=== PATIENT | female | born 1990 | race African-American/Black ===

== ENCOUNTER 2024-08-05 18:53 | Emergency (ER) | payer SELFPAY ==
[~2024-08-05] VITALS: Ht 167.6 cm; Wt 117.9 kg
[2024-08-05 19:07] VITALS: TEMP 97.9
[2024-08-05 19:37] LABS: BASOPHILS % 0.3 % (0.0-1.0); EOSINOPHILS # (AUTO) 0.3 (0.0-0.4); EOSINOPHILS % 5.7 % (0.0-6.0); HEMATOCRIT 34.8 % (34.2-44.1); HEMOGLOBIN 11.8 g/dL (12.0-16.0); LYMPHOCYTES # (AUTO) 1.5 (1.0-3.2); MEAN CORPUSCULAR HEMOGLOBIN 32.4 pg (28-32); MEAN CORPUSCULAR HGB CONC 33.9 g/dL (31-35); MEAN CORPUSCULAR VOLUME 95.6 fL (81-99); MONOCYTES # (AUTO) 0.6 (0.2-0.8); MONOCYTES % 9.4 % (4.4-11.3); NEUTROPHILS # (AUTO) 3.5 (2.1-6.9); NEUTROPHILS % 59.1 % (38.7-80.0); PLATELET COUNT 293 x10e3/uL (140-360); RED BLOOD COUNT 3.64 x10e6/uL (3.6-5.1); RED CELL DISTRIBUTION WIDTH 11.9 % (11.7-14.4); WHITE BLOOD COUNT 5.95 x10e3/uL (4.8-10.8)
[2024-08-05 19:49] VITALS: PULSE 88; RESP 18; O2SAT 96
[2024-08-05 19:51] LABS: ALBUMIN 3.5 g/dL (3.5-5.0); ANION GAP 13.5 mmol/L (8-16); BILIRUBIN,TOTAL 0.5 mg/dL (0.2-1.2); CALCIUM 8.5 mg/dL (8.4-10.2); CREATININE, SERUM 0.79 mg/dL (0.57-1.11); POTASSIUM 3.5 mmol/L (3.5-5.1)
[2024-08-05] MEDS: METHYLPREDNISOLONE SOD SUCC 125 MG/2ML VIAL IV ONE (19:53)
[2024-08-05] MEDS: ALBUTEROL SULF 0.083% NEB SOLN 3 ML NEB NEB STA (19:56)
[2024-08-05] MEDS: IPRATROPIUM BROMIDE 0.02% 2.5 ML NEB NEB ONE (19:57)
[2024-08-05 20:05] LABS: TOTAL PROTEIN 7.4 g/dL (6.5-8.1)
[2024-08-05 20:10] LABS: ALBUMIN/GLOBULIN RATIO 0.9 (0.8-2.0)
[2024-08-05 20:11] VITALS: PULSE 92; RESP 18
[2024-08-05 21:33] LABS: CORONAVIRUS COVID-19 AG NEGATIVE (NEGATIVE); INFLUENZA A AG NEGATIVE (NEGATIVE); INFLUENZA B AG NEGATIVE (NEGATIVE)
[2024-08-05] MEDS ORDERED: ALBUTEROL1.25 MG/3 NEB (21:39)
[2024-08-05] MEDS ORDERED: MEDROL4 M2 PEG (21:39)
[2024-08-05 21:45] VITALS: PULSE 88; RESP 20; O2SAT 93
[2024-08-06] MEDS ORDERED: MEDROL4 M2 PO (06:38)
[2024-08-06] MEDS ORDERED: ALBUTEROL1.25 MG/3 NEB (06:38)
== END 2024-08-05 22:05 | disposition home or self-care (01) ==
LOC: ER 19:28
DX: R06.02 Shortness of breath (principal); R05.9 Cough, unspecified; J45.901 Unspecified asthma with (acute) exacerbation; Z11.52 Encounter for screening for COVID-19
CPT/HCPCS: 36415; 71045; 80053; 85025; 87428; 94799; 99284; J2919

== ENCOUNTER 2024-09-12 20:49 | Emergency (ER) | payer SELFPAY ==
[~2024-09-12] VITALS: Ht 167.6 cm; Wt 119.3 kg
[~2024-09-12 20:49] MED LIST: ALBUTEROL1.25 MG/3 NEB; MEDROL4 M2 PEG; MEDROL4 M2 PO
[2024-09-12] MEDS ORDERED: SODIUM CHLORIDE 0.9% 1000ML 1,000 ML ONE (21:04)
[2024-09-12] MEDS ORDERED: ONDANSETRON HCL INJ 2MG/ML 2ML 2 MG/ML VIAL ONE (21:04)
[2024-09-12] MEDS: ONDANSETRON HCL INJ 2MG/ML 2ML 2 MG/ML VIAL IV STA (21:12)
[2024-09-12] MEDS: SODIUM CHLORIDE 0.9% 1000ML 1,000 ML IV ONE (21:13)
[2024-09-12 21:27] LABS: BASOPHILS % 0.6 % (0.0-1.0); EOSINOPHILS # (AUTO) 0.3 (0.0-0.4); EOSINOPHILS % 4.9 % (0.0-6.0); HEMATOCRIT 35.3 % (34.2-44.1); HEMOGLOBIN 11.6 g/dL (12.0-16.0); LYMPHOCYTES # (AUTO) 1.9 (1.0-3.2); MEAN CORPUSCULAR HGB CONC 32.9 g/dL (31-35); MEAN CORPUSCULAR VOLUME 97.5 fL (81-99); MONOCYTES # (AUTO) 0.5 (0.2-0.8); MONOCYTES % 9.3 % (4.4-11.3); NEUTROPHILS # (AUTO) 2.7 (2.1-6.9); PLATELET COUNT 353 x10e3/uL (140-360); RED BLOOD COUNT 3.62 x10e6/uL (3.6-5.1); RED CELL DISTRIBUTION WIDTH 11.9 % (11.7-14.4); WHITE BLOOD COUNT 5.29 x10e3/uL (4.8-10.8)
[2024-09-12 21:47] LABS: ALBUMIN 3.5 g/dL (3.5-5.0); ALBUMIN/GLOBULIN RATIO 0.8 (0.8-2.0); ANION GAP 14.3 mmol/L (8-16); BILIRUBIN,TOTAL 0.3 mg/dL (0.2-1.2); CALCIUM 8.9 mg/dL (8.4-10.2); CREATININE, SERUM 0.75 mg/dL (0.57-1.11); POTASSIUM 4.3 mmol/L (3.5-5.1); TOTAL PROTEIN 7.8 g/dL (6.5-8.1)
[2024-09-12] MEDS: DICYCLOMINE HCL 20 MG/2 ML VIAL IM ONE (21:55)
[2024-09-12 22:17] LABS: BILIRUBIN,URINE NEGATIVE (NEGATIVE); CLARITY,URINE CLOUDY (CLEAR); COLOR,URINE YELLOW (YELLOW); GLUCOSE, URINE NEGATIVE (NEGATIVE); KETONES,URINE NEGATIVE (NEGATIVE); LEUKOCYTE ESTERASE ,URINE NEGATIVE (NEGATIVE); NITRITE,URINE NEGATIVE (NEGATIVE); PH,URINE 5.5 (5 - 7); PROTEIN,URINE DIPSTICK TRACE (NEGATIVE)
[2024-09-12 22:23] LABS: BACTERIA,URINE MODERATE /HPF; EPITHELIAL CELLS,URINE FEW /LPF; MUCUS,URINE FEW; RBC,URINE >50 /HPF (0-5)
[2024-09-12] MEDS ORDERED: ONDANSETRON ODT4 MG SL (22:46)
[2024-09-12] MEDS ORDERED: CEFDINIR300 MG PO (22:46)
[2024-09-12] MEDS ORDERED: DICYCLOMINE HCL20 MG PO (22:46)
[2024-09-12 23:03] VITALS: PULSE 72; RESP 18; TEMP 97.8; O2SAT 100
== END 2024-09-12 23:12 | disposition home or self-care (01) ==
LOC: ER 21:45
DX: R11.2 Nausea with vomiting, unspecified (principal); N39.0 Urinary tract infection, site not specified; R10.30 Lower abdominal pain, unspecified; R19.7 Diarrhea, unspecified
CPT/HCPCS: 36415; 80053; 81001; 84702; 85025; 99283; J0500; J2405; J2470; J7030